=== PATIENT | male | born 2000 | race Caucasian/White ===

== ENCOUNTER 2023-05-21 23:15 | Emergency (ER) | payer MEDICAID, SELFPAY ==
[2023-05-21 23:18] VITALS: BP 125/82; PULSE 83; RESP 18; TEMP 36.6; O2SAT 98; BMI 21.5
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
[2023-05-22] MEDS: Cyclobenzaprine HCl 10 MG TABLET PO (01:49)
[2023-05-22] MEDS: Ibuprofen 600 MG TABLET PO (01:49)
== END 2023-05-22 01:50 | disposition home or self-care (01) ==
PROVIDERS: Emergency Provider Emergency Medicine; PCP Pediatrics
DX: S29.012A Strain of muscle and tendon of back wall of thorax, initial encounter (principal); V43.62XA Car passenger injured in collision with other type car in traffic accident, initial encounter; Y93.89 Activity, other specified; Y92.414 Local residential or business street as the place of occurrence of the external cause; Y99.9 Unspecified external cause status
CPT/HCPCS: 99283